=== PATIENT | female | born 1990 | race Caucasian/White ===

== ENCOUNTER 2019-12-10 08:10 | Outpatient (CLI) | payer OTHER | END 2019-12-10 23:59 | disposition home or self-care (01) | LOC: COV 08:10 | PROVIDERS: ATTEND Family Medicine | DX: Z20.828 Contact with and (suspected) exposure to other viral communicable diseases (principal) ==

== ENCOUNTER 2020-01-03 16:42 | Outpatient (CLI) | payer OTHER | END 2020-01-03 16:43 | disposition home or self-care (01) | LOC: COV 16:42 | PROVIDERS: ATTEND Family Medicine | DX: M79.10 Myalgia, unspecified site (principal); R09.81 Nasal congestion; Z20.828 Contact with and (suspected) exposure to other viral communicable diseases ==